=== PATIENT | female | born 1975 | race Two or more races ===

== ENCOUNTER 2021-08-04 12:10 | Outpatient (CLI) | payer BC | END 2021-08-04 12:11 | disposition home or self-care (01) | LOC: MRI 12:10 | PROVIDERS: ATTEND Physician Assistant | DX: M45.6 Ankylosing spondylitis lumbar region (principal); N39.44 Nocturnal enuresis; M47.816 Spondylosis without myelopathy or radiculopathy, lumbar region | CPT/HCPCS: 72148 ==